=== PATIENT | male | born 1960 | race Hispanic/Latino ===

== ENCOUNTER 2018-01-03 10:43 | Outpatient (CLI) | payer OTHER, BC ==
--- NOTE | 2018-01-03 11:19 | XRay Report ---
RIGHT KNEE RADIOGRAPHS INDICATION: Right knee pain. COMPARISON: None similar at this institution. FINDINGS: Standing AP, lateral, oblique and sunrise views of the right knee demonstrates grossly intact articulation. Mild degenerative spurring. Possible patellofemoral narrowing laterally. No suprapatellar effusion. Borderline patella thais. CONCLUSION: Mild right knee osteoarthrosis, as described. Please correlate. Thank you for the opportunity to participate in this patient's care.
== END 2018-01-03 10:44 | disposition home or self-care (01) ==
LOC: SPVIMAG 10:43
PROVIDERS: ATTEND Orthopaedic Surgery
DX: M17.11 Unilateral primary osteoarthritis, right knee (principal); M25.861 Other specified joint disorders, right knee